=== PATIENT | female | born 1970 | race Caucasian/White ===

== ENCOUNTER 2020-05-13 03:48 | Emergency (ER) | payer OTHER ==
[~2020-05-13 03:48] MED LIST: BACTRIM DS TAB1 EACH PO; IBUPROFEN800 MG PO; NYSTOP TOPICAL30 GM TOP; PERCOCET 10-321 EACH PO; PERCOCET 5-3251 EACH PO; PHENERGAN25 M1 PO; TRAMADOL HCL50 MG PO; XANAX0.5 MG PO
[2020-05-13 04:45] LABS: BILIRUBIN NEGATIVE (NEGATIVE); BLOOD 2+ Ery/uL (NEGATIVE); CLARITY CLOUDY (CLEAR); COLOR YELLOW (YELLOW); GLUCOSE (U) NORMAL (NORMAL); LEUKOCYTES 2+ Leu/uL (NEGATIVE); NITRITE NEGATIVE (NEGATIVE); PROTEIN 1+ mg/dL (NEGATIVE); SPECIFIC GRAVITY >=1.030 (1.001-1.030); UROBILINOGEN 0.2 mg/dL (0.2-1.0)
[2020-05-13 04:49] LABS: BACTERIA 3+; SQUAMOUS EPITHELIAL CELLS >50; URINARY WBC TNTC
[2020-05-13 04:54] LABS: BASOPHIL 0.5 % (0-2); EOSINOPHIL 2.7 % (0-5); HCT 31.6 % (37.0-47.0); MCH 27.5 pg (25.0-31.0); MCHC 31.6 g/dL (32.0-36.0); MCV 87.1 fL (78.0-100.0); MONOCYTE 10.3 % (0-12); MPV 8.1 fL (6.0-9.5); NEUTROPHIL 74.8 % (41-80); NRBC 0; PLT 568 K/uL (150-400); RBC 3.63 M/uL (4.20-5.40); RDW 14.2 % (11.5-14.0); WBC 12.3 K/uL (4.0-10.5)
[2020-05-13 05:14] LABS: ALBUMIN 2.7 g/dL (3.4-5.0); BILIRUBIN - TOTAL 0.2 mg/dL (0.2-1.0); BUN/CREAT RATIO (CALC) 10.4 RATIO; CREATININE 1.06 mg/dL (0.51-0.95); GLOBULIN (CALCULATION) 4.8 g/dL; POTASSIUM 3.3 mmol/L (3.5-5.1); TOTAL PROTEIN 7.5 g/dL (6.4-8.2)
[2020-05-13] MEDS ORDERED: PYRIDIUM200 MG PO (05:40)
[2020-05-13] MEDS ORDERED: LEVAQUIN500 MG PO (05:40)
== END 2020-05-13 05:55 | disposition home or self-care (01) ==
LOC: FER 03:48
PROVIDERS: Emergency Medicine
DX: N39.0 Urinary tract infection, site not specified (principal); F17.200 Nicotine dependence, unspecified, uncomplicated
CPT/HCPCS: 36415; 74022; 80053; 81001; 83605; 85025; 87088